=== PATIENT | female | born 1995 | race American Indian/Alaskan Native ===

== ENCOUNTER 2019-12-31 07:11 | Emergency (ER) | payer MEDICAID ==
[2019-12-31 07:44] VITALS: BP 122/78
--- NOTE | 2019-12-31 08:16 | Emergency Department Report ---
Chief Complaint: Sore Throat Stated Complaint: FEVER,THROAT,BODYACHE Time Seen by Provider: 12/31/19 07:42 - HPI History of Present Illness: This is a 24-year-old -[place] female who presents to the emergency room with cough, headache, congestion, chills, and subjective fever for 5 days. No significant past medical history. Patient taken [id number] cold and flu medications which improved some of her symptoms. Patient states she cannot get rid of the sore throat and a cough and occasional headaches. She denies nausea, vomiting, abdominal pain, myalgia, chest pain, shortness of breath, or wheezing. - ROS Review of Systems: ROS: Stated complaint: COLD SYMPTOMS Other details as noted in HPI Constitutional: fever, chills. ENT: throat pain, congestion. denies: ear pain, dental pain, hearing loss, epistaxis Respiratory: cough. denies: shortness of breath, wheezing Cardiovascular: denies: chest pain, palpitations Gastrointestinal: denies: abdominal pain, vomiting, diarrhea, hematemesis, nausea. Genitourinary: denies: urgency, dysuria Musculoskeletal: denies: back pain, joint swelling, arthralgia, myalgia. Skin: denies: rash, lesions Neurological: headache. denies: weakness, paresthesias. Psychiatric: denies: anxiety, depression - Exam Vital Signs: Vital Signs 12/31/19 07:19 Temperature 97.8 F Pulse Rate 101 H Respiratory 16 Rate Blood Pressure 122/78 O2 Sat by Pulse 99 Oximetry Physical Exam: General: Vital signs noted. No distress. Alert and acting appropriately. HEENT: Yes Moist Mucous Membranes, Yes Rhinorrhea (Turbinates congested with clear discharge), No Pharyngeal Erythema, Pharyngeal Exudates, No Conjuctival Injection, No Frontal Tenderness, No Maxillary Tenderness Ear: Neither TM Bulge, Neither TM Erythema, Neither EAC Pain, Neither EAC Discharge Neck: Yes Supple, No Adenopathy Lungs: Yes Good Air Exchange, No Wheezes, No Ronchi, No Stridor, No Cough, No Labored Respirations, No Retractions, No Use of Accessory Muscles, No Other Abnormal Lung Sounds Heart: Yes Regular, No Murmur Abdomen: Yes Normal Bowel Sounds, No Tenderness, No Peritoneal Signs Skin: No Rash, No Edema Neurologic: Alert and oriented, no deficits. Musculoskeletal: Unremarkable. MSE screening note: Focused history and physical exam performed. Due to findings the following was ordered: ED Medical Decision Making - Medical Decision Making 24 y.o. female that presents with upper respiratory symptoms for 5 days. No significant past medical history. No distress noted. Patient is afebrile an well-appearing. There is low suspicion for bacterial sinusitis or pneumonia. Patient denies dysphagia. This is unlikely strep throat as since our score negative and no pharyngeal exudate on exam. This is a nonemergent complaint. Symptoms are most likely related to viral upper respiratory infection. Patient instructed to continue taking [id number] cold and flu medications. Will start cough suppressant. Follow-up with the primary care doctor. Discharged home stable with strict return instructions. Encouraged to do supportive care for URI. Follow up with Primary Care Provider in 2-3 days. ED Disposition for MSE Disposition: MED SCREENING EXAM-LEFT Condition: Stable Instructions: Cold Symptoms (ED), Upper Respiratory Infection (ED) Additional Instructions: Increase fluid intake and rest. Wash hands frequently. Continue taking Tylenol or ibuprofen to control fever. Follow-up with Primary Care Provider. Return to ER if fever, SOB, or difficulty breathing after 48 hours of supportive care. Prescriptions: Benzonatate [Tessalon Perles] 100 mg PO Q8HR PRN #30 capsule PRN Reason: Cough Referrals: STEPHANIE GARCIA MD [Primary Care Provider] - 3-5 Days [facility] [Outside] - 3-5 Days [facility] [Outside] - 3-5 Days Forms: Work/School Release Form(ED) Time of Disposition: 08:22
== END 2019-12-31 08:26 | disposition left against medical advice (07) ==
LOC: ED 07:11
DX: R05 Cough (principal); R51 Headache; R09.89 Other specified symptoms and signs involving the circulatory and respiratory systems; R50.9 Fever, unspecified; Z88.8 Allergy status to other drugs, medicaments and biological substances
CPT/HCPCS: 99282